=== PATIENT | female | born 1980 | race American Indian/Alaskan Native ===

== ENCOUNTER 2018-08-24 08:07 | Emergency (ER) | payer SELFPAY ==
[2018-08-24] MEDS ORDERED: HYDROGEN PEROXIDE ONE (09:31)
--- NOTE | 2018-08-24 09:37 | Emergency Department Report ---
Abscess Boil HPI - HPI Chief Complaint: Extremity Problem,Nontraumatic Stated Complaint: FINGER PAIN Time Seen by Provider: 08/24/18 09:32 Duration: 3 Days Location: Other (left finger) Severity: Mild History: Yes Pain, No Fever, No Purulent Drainage, No Numbness, No Foreign Body, No Previous History, No Insect Bite HPI: 37-year-old [place] female reports was department complaining of pain and tenderness to her left finger at the printable bit scrape her nail cuticle and since that time. The nose and swelling and redness to that region, but no discharge. Pain is becoming progressively worsening a dull throbbing fashion. Home Medications: Previous Rx's Medication Instructions Recorded Last Taken Type Ketorolac [Toradol] 10 mg PO Q6H PRN #20 tablet 08/24/18 Unknown Rx Sulfamethoxazole/Trimethoprim 1 each PO BID #20 tablet 08/24/18 Unknown Rx [Bactrim DS TAB] Allergies/Adverse Reactions: Allergies Allergy/AdvReac Type Severity Reaction Status Date / Time No Known Allergies Allergy Unverified 08/24/18 08:13 ED Review of Systems ROS: Stated complaint: FINGER PAIN Other details as noted in HPI Constitutional: denies: chills, fever Eyes: denies: eye pain, eye discharge, vision change ENT: denies: ear pain, throat pain Respiratory: denies: cough, shortness of breath, wheezing Cardiovascular: denies: chest pain, palpitations Endocrine: no symptoms reported Gastrointestinal: denies: abdominal pain, nausea, diarrhea Genitourinary: denies: urgency, dysuria, discharge Musculoskeletal: denies: back pain, joint swelling, arthralgia Skin: change in color. denies: rash, lesions Neurological: denies: headache, weakness, paresthesias Psychiatric: denies: anxiety, depression Hematological/Lymphatic: denies: easy bleeding, easy bruising ED Past Medical Hx - Past Medical History Previous Medical History?: No - Surgical History Past Surgical History?: No - Social History Smoking Status: Never Smoker Substance Use Type: None - Medications Home Medications: Home Medications Medication Instructions Recorded Confirmed Last Taken Type Ketorolac [Toradol] 10 mg PO Q6H PRN #20 tablet 08/24/18 Unknown Rx Sulfamethoxazole/Trimethoprim 1 each PO BID #20 tablet 08/24/18 Unknown Rx [Bactrim DS TAB] ED Abscess Boil Physical Exam - Exam General: Vital signs noted. No distress. Alert and acting appropriately. Exam: Yes Tenderness, Yes Normal Neurologic Exam, Yes Normal Circulation, No Fluctuance, No Surrounding Cellulites/Erythema, No Lymphangitis, No Crepitation, No Heart Murmur Exam: The paronychia to her left third digit. Skin is intact. Pulses 2+. Capillary refills are brisk. No no subungual hematoma I & D Note - I & D Note I & D Note: Was prepped with Betadine. A #11 scalpel blade was used to puncture paronychia then placed in a peroxide solution for discharge evacuation. She was tolerated well. No complications ED Course Vital Signs 08/24/18 08:11 Temperature 98.9 F Pulse Rate 84 Blood Pressure 155/99 O2 Sat by Pulse 100 Oximetry Critical care attestation.: If time is entered above; I have spent that time in minutes in the direct care of this critically ill patient, excluding procedure time. ED Disposition Clinical Impression: Paronychia Disposition: DC-01 TO HOME OR SELFCARE Is pt being admited?: No Does the pt Need Aspirin: No Condition: Stable Instructions: Paronychia (ED) Prescriptions: Ketorolac [Toradol] 10 mg PO Q6H PRN #20 tablet PRN Reason: Pain Sulfamethoxazole/Trimethoprim [Bactrim DS TAB] 1 each PO BID #20 tablet Referrals: PRIMARY CARE, [Primary Care Provider] - 3-5 Days [facility] [Provider Group] - 3-5 Days
[2018-08-24 09:57] VITALS: BP 147/88
== END 2018-08-24 09:55 | disposition home or self-care (01) ==
LOC: ED 08:07
DX: L03.012 Cellulitis of left finger (principal)
CPT/HCPCS: 99282